=== PATIENT | male | born 1940 | race Two or more races ===

== ENCOUNTER 2018-08-23 10:33 | Emergency (ER) | payer MEDICARE, OTHER ==
[~2018-08-23] VITALS: Ht 177.8 cm; Wt 93.9 kg
--- NOTE | 2018-08-23 10:47 | NUR ---
[facility] FOR CHEST PAIN, NITRO, ASPIRIN 162 GIVEN SPECIALTY COOK. PATIENT PLACED ON MONITOR. INSERTED PIV. ON O2 NC SATTING WELL
[2018-08-23 10:53] LABS: BASOPHILS # (AUTO) 0.1 /CMM (0.0-0.2); BASOPHILS % (AUTO) 0.6 % (0.0-2.0); EOSINOPHILS % (AUTO) 0.2 % (0.0-6.0); HEMATOCRIT 29 % (39-51); HEMOGLOBIN 9.6 g/dL (13.5-17.5); LYMPHOCYTES # (AUTO) 1.5 /CMM (0.8-4.8); LYMPHOCYTES % (AUTO) 10.4 % (20.0-44.0); MEAN CORPUSCULAR HGB CONC 34 g/dl (31.0-36.0); MEAN CORPUSCULAR VOLUME 92 fL (80-96); MONOCYTES # (AUTO) 1.3 /CMM (0.1-1.30); MONOCYTES % (AUTO) 8.7 % (2.0-12.0); NEUTROPHILS # (AUTO) 11.6 /CMM (1.8-8.9); NEUTROPHILS % (AUTO) 80.1 % (43.0-81.0); PLATELET COUNT (AUTO) 238 /CMM (150-450); RED BLOOD CELL COUNT(AUTO) 3.12 MIL/uL (4.5-6.0); WHITE BLOOD COUNT (AUTO) 14.5 K/uL (4.3-11.0)
[2018-08-23] MEDS ORDERED: FUROSEMIDE 20 MG/2 ML VIAL ONE (10:55)
[2018-08-23 10:57] LABS: CALCIUM, SERUM 8.5 mg/dL (8.5-10.1); CARBON DIOXIDE 22 mmol/L (21-32); CHLORIDE 100 mmol/L (98-107); CREATININE 1.2 mg/dL (0.6-1.3); GLUCOSE 144 mg/dL (74-106); SODIUM SERUM 134 mmol/L (136-145); UREA NITROGEN, BLOOD 19 mg/dL (7-18)
[2018-08-23 11:00] VITALS: BP 112/75
[2018-08-23] MEDS ORDERED: FUROSEMIDE 20 MG/2 ML VIAL IV ONE (11:00)
--- NOTE | 2018-08-23 11:02 | NUR ---
RT PLACED PT ON BIPAP PER ER MD ORDER. VENT PLUGGED IN RED OUTLET. ALARMS CHECKED AND AUDIBLE. PT TOLERATING SETTINGS. WILL CONTINUE TO MONITOR.
[2018-08-23 11:10] LABS: ALANINE AMINOTRANSFERASE 34 U/L (12-78); ALBUMIN 3.1 g/dL (3.4-5.0); ALKALINE PHOSPHATASE 94 U/L (46-116); ASPARTATE AMINOTRANSFERASE 41 U/L (15-37); B-TYPE NATRIURETIC PEPTIDE 7228 PG/ML (0-125); BILIRUBIN,DIRECT 0.3 mg/dL (0.0-0.2); BILIRUBIN,TOTAL 1.2 mg/dL (0.2-1.0); TOTAL PROTEIN, SERUM 7.3 g/dL (6.4-8.2)
--- NOTE | 2018-08-23 11:53 | NUR ---
SATINDER CEDILLO ASKING FOR UPDATE; [phone]
[2018-08-23] MEDS ORDERED: IOHEXOL-350 100 ML VIAL IV ONE ×2 (11:54→12:03)
[2018-08-23] MEDS ORDERED: CT SWABBABLE VALVE TRANS SET 1 EA INFUS.SET MC ONE (11:54)
[2018-08-23] MEDS ORDERED: ASPI-1169 PO (11:57)
[2018-08-23] MEDS ORDERED: NA P133E RC (11:58)
[2018-08-23] MEDS ORDERED: BISA10SU61 RC (11:58)
[2018-08-23] MEDS ORDERED: ZOLP5TAB8 PO (11:58)
[2018-08-23] MEDS ORDERED: DOCU-141 PO (11:58)
[2018-08-23] MEDS ORDERED: MAGN400O6 PO (11:58)
[2018-08-23] MEDS ORDERED: SENN-168 PO (11:58)
--- NOTE | 2018-08-23 12:10 | NUR ---
WITH PATIENT IN MED-SURG FROM [id number] WAS NOT INFORMED OF STAT IN ER. UPON ARRIVAL PATIENT WAS STILL FULLY DRESSED NOT READY FOR SCAN. KINDLY ASKED CENTRIFUGAL SCREEN TENDER TO UNDRESS PATIENT. EXAM START TIME 1123 END TIME 3478
--- NOTE | 2018-08-23 12:31 | NUR ---
CALL BACK FROM DR PRINCE, SPOKE WITH DR QUICK AND ACCEPTED FOR TX.
--- NOTE | 2018-08-23 13:10 | NUR ---
DR BAILEY PAGED THRU OFFICE
--- NOTE | 2018-08-23 13:33 | NUR ---
CALL BACK FROM DR BAILEY'S OFFICE,FELICIANO FOR TX, SHE WANTS US TO CALL DR EM AT [phone].
--- NOTE | 2018-08-23 13:35 | NUR ---
CALL BACK FROM DR EM,SPOKE WITH DR QUICK
--- NOTE | 2018-08-23 13:43 | NUR ---
CALLED [facility], SPOKE WITH SHANE (CHARGE NURSE IN THE ER), TRANSFERRED CALL TO JOVANA (CHARGE NURSE).
--- NOTE | 2018-08-23 13:44 | NUR ---
WEED ER CALL ,NO ICU BED PER SHANE ESPINOZA
--- NOTE | 2018-08-23 14:00 | NUR ---
DR EM PAGED AGAIN FOR DR QUICK
--- NOTE | 2018-08-23 14:04 | NUR ---
ON PHONE WITH
--- NOTE | 2018-08-23 14:08 | NUR ---
CALLED [facility], , SPOKE WITH NAVEEN, TRANSFERRED CALL TO
--- NOTE | 2018-08-23 14:13 | NUR ---
BERNIE HARDY,PRESENTED TO CHRISSY
--- NOTE | 2018-08-23 14:23 | NUR ---
FAXED PT INFO TO NAVEEN AT [facility],
[2018-08-23] MEDS ORDERED: HEPARIN INFUSION/D5W 500 ML IV PRN (14:30)
[2018-08-23] MEDS ORDERED: HEPARIN INFUSION/D5W 500 ML IV ONE (14:42)
[2018-08-23] MEDS ORDERED: HEPARIN SODIUM, PORCINE 5000 UNITS/1 ML VIAL ONE (14:42)
--- NOTE | 2018-08-23 15:14 | NUR ---
NAVEEN FROM [facility] ON PHONE WITH JOVANA, CHARGE NURSE.
--- NOTE | 2018-08-23 15:56 | NUR ---
CALL BACK FROM BERNIE LOWE, NO BED
[2018-08-23] MEDS ORDERED: HEPARIN SODIUM, PORCINE 5000 UNITS/1 ML VIAL SQ ONE (16:00)
--- NOTE | 2018-08-23 16:00 | NUR ---
ADDENDUM: Intravenous End Time Documentation: Heparin Infusion (25,000/D5W 500 ml) start time: 1600 pm end time:1726 pm; PIV # 18 RAC
[2018-08-23 16:16] VITALS: BP 130/72
--- NOTE | 2018-08-23 16:21 | NUR ---
CALL BACK FROM NAVEEN ESPINOZA,GOING TO ROOM 102,[phone]
--- NOTE | 2018-08-23 17:01 | NUR ---
REPORT GIVEN TO JACKIE ESPINOZA CHARGE NURSE, AWAITING FOR AMBULANCE AT THIS TIME. PATIENT A/OX3, BREATHING EVEN AND UNLABORED, NO SOB NTOED AT THIS TIME, ON O2 AT 2LPM VIA NC WITH SPO2 OF 94%. NEEDS ATTENDED. WILL CONTINUE TO MONITOR.
--- NOTE | 2018-08-23 17:26 | NUR ---
AMBULANCE CAME AND REPORT GIVEN TO [employer] MACHINE OPERATOR. PATIENT A/OX3, BREATHING EVEN AND UNLABORED, ON 2LPM VIA NC WITH SPO2 OF 94%. HEPARIN HELD AT THIS TIME, PER DR. MANCUSO'S INSTRUCTION. PATIENT LEFT THE FACILITY AND TRANSFERRED VIA [facility]SPORT IN STABLE CONDITION.
== END 2018-08-23 18:07 | disposition short-term general hospital (02) ==
LOC: ER 10:38
DX: I21.4 Non-ST elevation (NSTEMI) myocardial infarction (principal); I11.0 Hypertensive heart disease with heart failure; I50.9 Heart failure, unspecified; S30.1XXA Contusion of abdominal wall, initial encounter; S30.22XA Contusion of scrotum and testes, initial encounter; J96.01 Acute respiratory failure with hypoxia; I35.0 Nonrheumatic aortic (valve) stenosis; I26.99 Other pulmonary embolism without acute cor pulmonale; E78.00 Pure hypercholesterolemia, unspecified; I45.10 Unspecified right bundle-branch block; I44.4 Left anterior fascicular block; I25.10 Atherosclerotic heart disease of native coronary artery without angina pectoris; Z79.82 Long term (current) use of aspirin; X58.XXXA Exposure to other specified factors, initial encounter; Y93.89 Activity, other specified; Y92.89 Other specified places as the place of occurrence of the external cause; Y99.8 Other external cause status
CPT/HCPCS: 36415; 71045; 71275; 74174; 76870; 80048; 80076; 83880; 84484; 85025; 85730; 87081; 93005 ×3; 94660; 96365; 96372; 96375; 99291; J1644 ×2; J1940; Q9967 ×2

== ENCOUNTER 2019-11-22 13:21 | Emergency (ER) | payer MEDICARE, OTHER ==
[~2019-11-22] VITALS: Ht 162.6 cm; Wt 95.7 kg
[~2019-11-22 13:21] MED LIST: ASPI-1169 PO; BISA10SU61 RC; DOCU-141 PO; MAGN400O6 PO; NA P133E RC; SENN-261 PO; ZOLP5TAB8 PO
--- NOTE | 2019-11-22 13:48 | NUR ---
patient came in to the er c/o "Flank/back pain since tuesday worse now" [place]. On room air, breathing evenly and unlabored. connected to the monitor and pulse ox. kept comfortable, will continue to monitor accordingly.
[2019-11-22 13:53] LABS: BASOPHILS # (AUTO) 0.1 /CMM (0.0-0.2); BASOPHILS % (AUTO) 1.2 % (0.0-2.0); EOSINOPHILS % (AUTO) 1.4 % (0.0-6.0); HEMATOCRIT 41 % (39-51); HEMOGLOBIN 13.7 g/dL (13.5-17.5); LYMPHOCYTES # (AUTO) 2.5 /CMM (0.8-4.8); LYMPHOCYTES % (AUTO) 32.3 % (20.0-44.0); MEAN CORPUSCULAR HGB CONC 33 g/dl (31.0-36.0); MEAN CORPUSCULAR VOLUME 91 fL (80-96); MONOCYTES # (AUTO) 0.7 /CMM (0.1-1.30); MONOCYTES % (AUTO) 9.7 % (2.0-12.0); NEUTROPHILS # (AUTO) 4.2 /CMM (1.8-8.9); NEUTROPHILS % (AUTO) 55.4 % (43.0-81.0); PLATELET COUNT (AUTO) 163 /CMM (150-450); RED BLOOD CELL COUNT(AUTO) 4.54 MIL/uL (4.5-6.0); WHITE BLOOD COUNT (AUTO) 7.7 K/uL (4.3-11.0)
[2019-11-22 13:58] LABS: CREATININE 1.3 mg/dL (0.6-1.3); POTASSIUM 4.1 mmol/L (3.5-5.1)
[2019-11-22 14:04] LABS: ALBUMIN 3.9 g/dL (3.4-5.0); BILIRUBIN,DIRECT 0.1 mg/dL (0.0-0.2); BILIRUBIN,TOTAL 0.2 mg/dL (0.2-1.0); TOTAL PROTEIN, SERUM 7.9 g/dL (6.4-8.2)
[2019-11-22] MEDS ORDERED: MORPHINE SULFATE INJ 4 MG/ML DISP.SYRIN ONE (14:34)
[2019-11-22] MEDS ORDERED: KETOROLAC TROMETHAMINE INJ 30 MG/ML VIAL ONE (14:34)
--- NOTE | 2019-11-22 14:35 | NUR ---
URINE SPECIMEN COLLECTED AND SENT TO LAB.
[2019-11-22] MEDS: MORPHINE SULFATE INJ 2 MG/ML DISP.SYRIN IV ONE (14:40)
[2019-11-22] MEDS: KETOROLAC TROMETHAMINE INJ 30 MG/ML VIAL IV ONE (14:40)
[2019-11-22 14:45] LABS: APPEARANCE,URINE Clear (CLEAR); BILIRUBIN,URINE Negative (NEGATIVE); BLOOD, URINE Small Ery/uL (NEGATIVE); COLOR,URINE Yellow (YELLOW); KETONES,URINE Negative (NEGATIVE); LEUKOCYTE ESTERASE ,URINE Negative (NEGATIVE); NITRITE, URINE Negative (NEGATIVE); PH,URINE 5.5 (5.0-8.0); PROTEIN,URINE 30 mg/dl (NEGATIVE); UGLUCOSE Negative (NEGATIVE); UROBILINOGEN,URINE 0.2 EU/dL (0.2)
[2019-11-22 14:46] LABS: BACTERIA,URINE Few /HPF (None Seen); WBC,URINE 0-2 /HPF (0-3)
[2019-11-22 14:47] LABS: SQUAMOUS EPITHELIAL CELL,UR Few /HPF (None Seen)
[2019-11-22 15:28] VITALS: BP 145/81
--- NOTE | 2019-11-22 15:28 | NUR ---
Patient discharged to home in stable condition. Written and verbal after care instructions given. Patient verbalizes understanding of instruction.IV removed. Catheter intact and site benign. Pressure and 4x4 applied to site. No bleeding noted.
== END 2019-11-22 15:28 | disposition home or self-care (01) ==
LOC: ER 13:21
DX: N20.0 Calculus of kidney (principal); R30.9 Painful micturition, unspecified; I10 Essential (primary) hypertension; E11.9 Type 2 diabetes mellitus without complications; E78.00 Pure hypercholesterolemia, unspecified; Z79.899 Other long term (current) drug therapy; Z79.82 Long term (current) use of aspirin
CPT/HCPCS: 36415; 74176; 80048; 80076; 81001; 83690; 85025; 96374; 96375; 99284; J1885; J2270; 81000-TC